=== PATIENT | female | born 1985 | race Caucasian/White ===

== ENCOUNTER 2016-09-30 15:53 | Observation (INO) | payer MEDICARE ==
[2016-09-30 15:54] LABS: A-aADO2 42; ARTERIAL BLD GAS O2 SATURATION 78.3 % (95-100); ARTERIAL BLOOD GAS BASE EXCESS 2.8 (-2.0-2.0); ARTERIAL BLOOD GAS FIO2 21 %; ARTERIAL BLOOD GAS pH 7.35 (7.35-7.45)
[2016-09-30 15:55] LABS: ALLEN TEST OK? YES; ARTERIAL BLOOD GAS PO2 40 mmHg (75-100)
[2016-09-30] MEDS ORDERED: DUONEB 0.5-3 MG/3 ml Neb IH ONE (15:56)
[2016-09-30] MEDS ORDERED: solu-MEDROL 40 MG IV ONE (16:05)
[2016-09-30] MEDS ORDERED: PHENERGAN 25 MG PO PRN (16:05)
[2016-09-30] MEDS: DUONEB 0.5-3 MG/3 ml Neb IH SCH ×3 (16:05→23:05)
--- NOTE | 2016-09-30 16:39 | XRAY ---
Indication: Short of breath. Comparison: None Portable chest demonstrates diffuse bilateral interstitial opacities favoring pneumonitis without consolidation/large effusion. Heart is not enlarged. Bony thorax intact.
[2016-09-30] MEDS: Nicoderm CQ 21 MG TOP SCH (16:40)
[2016-09-30] MEDS: Sodium Chloride 0.9% 1000 ML 1,000 ML IV SCH (16:41)
[2016-09-30] MEDS: Zithromax 500 MG/ 250 ML NaCl Premix 250 ML IV SCH (16:41)
[2016-09-30] MEDS: ROCEPHIN 1 Gm-D5w 50 ml Bag** 50 ML IV SCH (16:41)
[2016-09-30] MEDS: solu-MEDROL 40 MG IV SCH (18:16)
[2016-09-30] MEDS: TYLENOL 325 MG PO PRN (18:27)
[2016-09-30 18:42] LABS: Bacteria RARE /HPF (NEGATIVE); COMPLETE URINE MICROSCOPIC? YES; Collection Type CLEAN CATCH; Epithelial Cells FEW /HPF (FEW)
[2016-09-30] MEDS: Seroquel 100 MG PO SCH (21:19)
[2016-09-30] MEDS: Tamiflu 75MG Capsule PO SCH (21:20)
[2016-09-30] MEDS: Klor Con 10 MEQ PO SCH (21:20)
[2016-09-30] MEDS: XANAX 1 MG PO PRN (21:20)
[2016-09-30] MEDS ORDERED: Desyrel 150 MG PO SCH (22:00)
[2016-10-01] MEDS: solu-MEDROL 40 MG IV SCH ×3 (01:32→17:50)
[2016-10-01] MEDS: DUONEB 0.5-3 MG/3 ml Neb IH SCH ×5 (03:09→21:07)
[2016-10-01] MEDS: Sodium Chloride 0.9% 1000 ML 1,000 ML IV SCH ×2 (05:23→16:04)
[2016-10-01] MEDS: TYLENOL 325 MG PO PRN (05:35)
--- NOTE | 2016-10-01 07:08 | PCM.HP ---
History of Present Illness - Chief Complaint Chief Complaint: respiratory failure acute Date: 10/01/16 History of Present Illness: is a 31 year old female. presented to the office yesterday for shortness of breath fever and wheezing she was lethargic and had a pulse ox of 78% on room air. She was sent for direct admission found to have Influenza A with diffuse pneumonitis on CXR> she has refused many therapies as is consistent with her previous visits. She refused blood draws after an initial failed attempt at venous blood draws. She is improving on the oxygen and breathing better this am. - Review of Systems Constitutional: Fever, Chills, Fatigue, Lethargy Eyes: No Symptoms, Eye Redness, Itchy Ears, Nose, & Throat: Nose Congestion, Sinus Drainage, Mouth Pain, Hoarse Respiratory: Cough, Short Of Breath, Wheezing Cardiac: Edema, No Chest Pain, No Syncope Abdominal/Gastrointestinal: Nausea, No Abdominal Pain, No Vomiting, No Diarrhea Genitourinary Symptoms: No Dysuria Musculoskeletal: Back Pain, No Neck Pain Skin: No Rash Neurological: Dizziness, No Focal Weakness, No Sensory Changes Psychological: No Symptoms Endocrine: No Symptoms Hematologic/Lymphatic: No Symptoms Immunological/Allergic: No Symptoms Medications & Allergies Home Medications: Home Medication List Alprazolam 1 mg [Xanax 1 mg] 1 mg PO QID 09/30/16 [History Confirmed 09/30] Buprenorphine HCl/Naloxone HCl [Suboxone 8 mg-2 mg Sl Film] 1 film SL BID [History Confirmed 09/30/16] Desvenlafaxine Succinate [Pristiq ER] 2 tab PO DAILY 09/30/16 [History Confirmed 09/30/16] Imipramine HCl [Tofranil] 50 mg PO BID 09/30/16 [History Confirmed 09/30/16] Oxybutynin Chloride [Oxybutynin Chloride ER] 5 mg PO DAILY 09/30/16 [History Confirmed 09/30/16] Potassium Chloride 20 Meq [Klor-Con 20 MEQ] 20 meq PO BID 09/30/16 [History Confirmed 09/30/16] Quetiapine Fumarate [Seroquel] 100 mg PO QID 09/30/16 [History Confirmed ] Trazodone HCl 50 mg [Desyrel 50 mg] 50 mg PO HS 09/30/16 [History Confirmed 09/30/16] Allergies/Adverse Reactions: Allergies Allergy/AdvReac Type Severity Reaction Status Date / Time No Known Allergies Allergy Verified 09/30/16 17:55 - Past Medical History Past Medical History: Yes Neurological History: Migraines ENT History: No Pertinent History Cardiac History: No Pertinent History Respiratory History: Asthma, COPD Endocrine Medical History: No Pertinent History Musculoskelatal History: No Pertinent History GI Medical History: No Pertinent History History: No Pertinent History Pyscho-Social History: Anxiety, Depression Reproductive Disorders: No Pertinent History Comment: puchiagers" syndrome causing tumors, has healed self inflicted scars on wrists from "cutting" - Female History Hx Last Menstrual Period: 09/28/16 Are you now?: No - Past Surgical History Past Surgical History: Yes Neuro Surgical History: No Pertinent History Cardiac History: No Pertinent History Respiratory Surgery: No Pertinent History GI Surgical History: Cholecystectomy Genitourinary Surgical Hx: No Pertinent History Musculskeletal Surgical Hx: No Pertinent History Female Surgical History: No Pertinent History - Social History Smoking Status: Current every day smoker Alcohol: None Drug Use: none - Physical Exam Vital Signs: Vital Signs - 24 hr Temp Pulse Resp BP Pulse Ox 10/01/16 06:00 25 H 10/01/16 03:17 85 25 H 92 L 10/01/16 03:00 98.9 F 87 22 113/57 90 L 10/01/16 02:00 20 09/30/16 23:14 83 20 93 L 09/30/16 23:00 98.0 F 83 20 117/63 93 L 09/30/16 22:00 22 09/30/16 21:17 91 H 22 92 L 09/30/16 19:23 99.8 F 98 H 22 119/56 90 L 09/30/16 18:27 102.1 F 09/30/16 16:23 100 H 26 H 80 L 09/30/16 15:54 102.7 F 106 H 26 H 122/62 90 L Oxygen-Last 24 hours O2 Percentage 5 Liters = 40% O2 Percentage 5 Liters = 40% O2 Percentage 3 Liters = 32% General Appearance: no apparent distress, alert, obese Neurologic Exam: alert, oriented x 3, cooperative, normal mood/affect, nml cerebellar function, nml station & gait, sensation nml, No motor deficits Eye Exam: PERRL/EOMI, eyes nml inspection, other (conjunctivae injection) Ears, Nose, Throat Exam: normal ENT inspection, TMs normal, pharynx normal, moist mucous membranes Neck Exam: normal inspection, non-tender, supple, full range of motion Respiratory Exam: lungs clear, wheezing, No respiratory distress Cardiovascular Exam: regular rate/rhythm, normal heart sounds, normal peripheral pulses, No murmur Gastrointestinal/Abdomen Exam: soft, normal bowel sounds, No tenderness, No mass Back Exam: normal inspection, normal range of motion, No CVA tenderness, No vertebral tenderness Extremity Exam: normal inspection, normal range of motion, pelvis stable, pedal edema Skin Exam: normal color, warm, dry, No rash Lymphatic Exam: No adenopathy Results - Labs Lab/Micro Results: Lab Results-Last 24 Hours 09/30/16 09/30/16 09/30/16 Range/Units 15:45 16:40 18:28 Puncture Site RIGHT RADIAL pCO2 54 H (35-45) mmHg pO2 40 L* (75-100) mmHg Base Excess 2.8 H (-2.0-2.0) O2 Saturation 74.0 L (94-100) g/dF ABG pH 7.35 (7.35-7.45) ABG HCO3 29.8 H* (22-28) ABG O2 Sat (Measured) 78.3 L (95-100) % Evangelista Test YES A-a Gradient 42 a/A Ratio 0.49 Hemoglobin 15.0 Carboxyhemoglobin 4.1 (0.0-6.9) % THgb Methemoglobin 1.4 (1.4-1.5) % Potassium 3.9 (3.5-5.1) Temperature 37.0 C POC O2 Flow Rate 21 % Ur Collection Type CLEAN CATCH Urine Color ROLANDO (YELLOW) Urine Appearance CLEAR (CLEAR) Urine pH 5.0 (5-6) Ur Specific [place] 1.025 (1.005-1.025) Urine Protein 30 (Negative) Urine Glucose (UA) NEGATIVE (NEGATIVE) mg/dL Urine Ketones NEGATIVE (NEGATIVE) Urine Nitrite NEGATIVE (NEGATIVE) Urine Bilirubin NEGATIVE (NEGATIVE) Urine Urobilinogen 1 (0-1) mg/dL Urine WBC (Auto) NEGATIVE (NEGATIVE) Urine RBC (Auto) NEGATIVE (0-5) Carlos Alberto/ul Ur Epithelial Cells FEW (FEW) /HPF Urine Bacteria RARE (NEGATIVE) /HPF Urine HCG, Qual (Negative) Influenza Type A Ag POSITIVE (NEGATIVE) Influenza Type B Ag NEGATIVE (NEGATIVE) RSV (PCR) NEGATIVE (Negative) Specimen Received 09/30/16:1830 09/30/16 Range/Units 18:28 Puncture Site pCO2 (35-45) mmHg pO2 (75-100) mmHg Base Excess (-2.0-2.0) O2 Saturation (94-100) g/dF ABG pH (7.35-7.45) ABG HCO3 (22-28) ABG O2 Sat (Measured) (95-100) % Evangelista Test A-a Gradient a/A Ratio Hemoglobin Carboxyhemoglobin (0.0-6.9) % THgb Methemoglobin (1.4-1.5) % Potassium (3.5-5.1) Temperature C POC O2 Flow Rate % Ur Collection Type Urine Color (YELLOW) Urine Appearance (CLEAR) Urine pH (5-6) Ur Specific [place] (1.005-1.025) Urine Protein (Negative) Urine Glucose (UA) (NEGATIVE) mg/dL Urine Ketones (NEGATIVE) Urine Nitrite (NEGATIVE) Urine Bilirubin (NEGATIVE) Urine Urobilinogen (0-1) mg/dL Urine WBC (Auto) (NEGATIVE) Urine RBC (Auto) (0-5) Carlos Alberto/ul Ur Epithelial Cells (FEW) /HPF Urine Bacteria (NEGATIVE) /HPF Urine HCG, Qual NEGATIVE (Negative) Influenza Type A Ag (NEGATIVE) Influenza Type B Ag (NEGATIVE) RSV (PCR) (Negative) Specimen Received - Radiology Impressions Radiology Exams & Impressions: Radiology Procedures Category Date Time Status CHEST 1 VIEW (PORTABLE) Stat Exams 09/30/16 16:05 Completed - Other Procedures and Tests Respiratory Therapy 09/30/16 15:00 Respiratory Nebulizer Q4H 09/30/16 16:21 Oxygen NASAL CANNULA 5 lpm 09/30/16 21:17 BiPap/CPAP Assessment ROUTINE Assessment/Plan (1) Influenza A Current Visit: Yes Status: Acute Assessment & Plan: on tamiflu on 5 L nc o2 with her sever asthma tobacco abuse and previous dx of copd treat acute exacerbation as well with IV steroids, nebs, azithromycin, ceftriaxone wean O2 as tolerated Code(s): J10.1 - FLU DUE TO OTH IDENT INFLUENZA VIRUS W OTH RESP MANIFEST (2) Acute hypoxemic respiratory failure Current Visit: Yes Status: Acute Code(s): J96.01 - ACUTE RESPIRATORY FAILURE WITH HYPOXIA (3) COPD exacerbation Current Visit: Yes Status: Acute Code(s): J44.1 - CHRONIC OBSTRUCTIVE PULMONARY DISEASE W (ACUTE) EXACERBATION (4) Morbid obesity Current Visit: Yes Status: Acute Code(s): E66.01 - MORBID (SEVERE) OBESITY DUE TO EXCESS CALORIES (5) Asthma Current Visit: Yes Status: Acute Code(s): J45.909 - UNSPECIFIED ASTHMA, UNCOMPLICATED
[2016-10-01] MEDS ORDERED: MEDICATION INTERVENTION MC PRN (07:42)
[2016-10-01 08:42] LABS: Mean Cell Volume 93.3 fl (78-100); Mean Corpuscular Hemoglobin 29.8 pg (26-32); Mean Platelet Volume 10.3 fl (6-9.5); Platelet Count 168 K/mm3 (150-450); Red Blood Count 4.93 M/mm3 (4.1-5.4); Red Cell Distribution Width 13.6 % (11.5-14.0); White Blood Count 8.1 K/mm3 (4.0-10.5)
[2016-10-01] MEDS: Protonix 40MG Tablet PO SCH (09:18)
[2016-10-01] MEDS: Ditropan XL 5 MG PO SCH (09:18)
[2016-10-01] MEDS: Seroquel 100 MG PO SCH ×4 (09:18→22:23)
[2016-10-01] MEDS: PRISTIQ ER PO SCH (09:18)
[2016-10-01] MEDS: ENOXAPARIN SODIUM SQ SCH (09:19)
[2016-10-01] MEDS: Klor Con 10 MEQ PO SCH ×2 (09:19→22:23)
[2016-10-01] MEDS: Tamiflu 75MG Capsule PO SCH ×2 (09:19→22:23)
[2016-10-01 09:28] LABS: BAND 1 % (0.0-2.0); Platelet Estimate NORMAL (NORMAL); Total Cells Counted 100
[2016-10-01] MEDS ORDERED: IMIPRAMINE HCL 50 MG PO SCH (10:00)
[2016-10-01] MEDS ORDERED: NALOXONE HCL SL SCH (10:00)
[2016-10-01] MEDS ORDERED: BUPRENORPHINE HCL SL SCH (10:00)
[2016-10-01] MEDS: XANAX 1 MG PO PRN ×3 (10:15→22:28)
[2016-10-01 11:30] LABS: ALBUMIN 3.2 g/dL (3.4-5.0); ALKALINE PHOSPHATASE 51 U/L (46-116); ANION GAP 14.6 MEQ/L (5-15); BILIRUBIN,TOTAL 0.2 mg/dL (0.2-1.0); BLOOD UREA NITROGEN 8 mg/dL (9-20); CHLORIDE 102 mEq/L (98-107); Carbon Dioxide 24.7 mEq/L (21-32); Glucose 173 MG/DL (70-110); Potassium 4.2 mEq/L (3.5-5.1); SGOT/AST 26 U/L (15-37); SGPT/ALT 21 U/L (12-78); SODIUM 137 mEq/L (136-145); Total Protein 7.3 gm/dL (6.4-8.2)
[2016-10-01] MEDS: ROCEPHIN 1 Gm-D5w 50 ml Bag** 50 ML IV SCH (15:03)
[2016-10-01] MEDS: Nicoderm CQ 21 MG TOP SCH (15:04)
[2016-10-01] MEDS: Zithromax 500 MG/ 250 ML NaCl Premix 250 ML IV SCH (17:50)
[2016-10-01] MEDS ORDERED: DESYREL 50 MG PO SCH (22:00)
[2016-10-02] MEDS: DUONEB 0.5-3 MG/3 ml Neb IH SCH ×4 (00:23→10:33)
[2016-10-02] MEDS: solu-MEDROL 40 MG IV SCH ×2 (00:59→09:11)
--- NOTE | 2016-10-02 07:43 | PCM.DCORD ---
- Discharge Discharge Date: 10/02/16 Disposition: Home, Self-Care Condition: Stable Prescriptions: New Prednisone 20 mg [Deltasone 20 mg] 40 mg PO DAILY #10 tablet Oseltamivir 75 mg [Tamiflu 75MG Capsule] 75 mg PO BID #8 cap Azithromycin 250 mg [Zithromax 250 MG TABLET] 250 mg PO DAILY #4 tablet Continue Quetiapine Fumarate [Seroquel] 100 mg PO QID Desvenlafaxine Succinate [Pristiq ER] 2 tab PO DAILY Buprenorphine HCl/Naloxone HCl [Suboxone 8 mg-2 mg Sl Film] 1 film SL BID Potassium Chloride 20 Meq [Klor-Con 20 MEQ] 20 meq PO BID Alprazolam 1 mg [Xanax 1 mg] 1 mg PO QID Oxybutynin Chloride [Oxybutynin Chloride ER] 5 mg PO DAILY Imipramine HCl [Tofranil] 50 mg PO BID Trazodone HCl 50 mg [Desyrel 50 mg] 50 mg PO HS Follow up with: SHEREEN JACOBO [Primary Care Provider] - 1 Week
[2016-10-02 08:03] VITALS: BP 99/54
[2016-10-02] MEDS: ENOXAPARIN SODIUM SQ SCH (09:11)
[2016-10-02] MEDS: Klor Con 10 MEQ PO SCH (09:12)
[2016-10-02] MEDS: Ditropan XL 5 MG PO SCH (09:12)
[2016-10-02] MEDS: PRISTIQ ER PO SCH (09:12)
[2016-10-02] MEDS: Tamiflu 75MG Capsule PO SCH (09:13)
[2016-10-02] MEDS: Seroquel 100 MG PO SCH (09:13)
[2016-10-02] MEDS: Protonix 40MG Tablet PO SCH (09:13)
[2016-10-02 10:39] VITALS: PULSE 70; O2SAT 93
--- NOTE | 2016-10-02 18:12 | PCM.DS ---
Discharge Summary Date of Admission: 09/30/16 15:53 Date of Discharge: 10/02/16 Admitting Physician: SHEREEN JACOBO Primary Care Provider: SHEREEN JACOBO Allergies Allergies No Known Allergies Allergy (Verified 09/30/16 17:55) Hospital Summary - Hospital Course Hospital Course: Rita has asthma and has developed asthma with chronic bronchitis at a young age due to her noncompliance with treatment and her smoking that ranges from 1 to 3 packs per day. She developed fever chills and dyspnea on Friday with lethargy and shortness of breath but waited until Friday because she did not want to go to the hospital. She presented to the clinic and was very lethargic, she walked in but looked like she was going to fall over and she was checked and found to have pulse ox of 78% and a fever. She was given a neb and oxygen that improved her some to 90% she refused ambulance transfer to hospital and had her boyfriend take her for direct admission after much arguing about her need for hospitalization. She was found to be influenza A positive and started on tamiflu and had diffuse pneumonitis with her COPD she was started on solumedrol iv and azithromycin she improved and her fever did break and her oxygen was weaned from 5L down to room air. She was very anxious to be discharged. She was counseled on the harms of smoking with her asthma but has no intentions to quit smoking. - Vitals & Intake/Output Vital Signs: Vital Signs Temperature 97.2 F 10/02/16 11:00 Pulse Rate 70 10/02/16 11:00 Respiratory Rate 18 10/02/16 11:00 Blood Pressure 99/54 10/02/16 11:00 O2 Sat by Pulse Oximetry 93 L 10/02/16 11:00 Oxygen-Last Documented O2 Percentage 2 Liters = 28% Intake & Output: Intake & Output 09/30/16 10/01/16 10/02/16 10/03/16 11:59 11:59 11:59 11:59 Intake Total 2405 1440 Output Total 500 2500 Balance 1905 -1060 Weight 175.143 kg - Lab Result Diagrams: 10/01/16 08:05 10/01/16 08:05 Micro Results-Entire Visit: Microbiology 10/01/16 08:10 Blood Culture - Preliminary Blood NO GROWTH TO DATE - Procedures and Test Procedures and Tests throughout Hospitalization: Therapy Orders & Screens 09/30/16 15:00 Respiratory Nebulizer Q4H Comment: DUONEB Q4 Diagnosis: respiratory failure acute 09/30/16 16:05 EKG STAT Comment: Respiratory Therapy Consult ROUTINE Comment: Reason For Exam: 09/30/16 16:21 Oxygen NASAL CANNULA 5 lpm Comment: Diagnosis: respiratory failure acute 09/30/16 16:45 RT Screen per Nursing Assess ONCE Comment: Protocol Order Physician Instructions: Greater than 3 points order RT Admission Screen Reason For Exam: Triggered on Admission Diagnosis: respiratory failure acute Diagnosis: respiratory failure acute Pneumonia: Yes Home O2: No Asthma: Yes CHF: No Home CPAP/BIPAP: No Home Nebs/MDI: Yes Total Points: 12 Smoking Cessation Education ONCE Comment: Diagnosis: respiratory failure acute Smoking Status: Current every day smoker Have you smoked in the past 12 months: Yes Approximately how many cigarettes per day: 2ppd 09/30/16 21:17 BiPap/CPAP Assessment ROUTINE Comment: Diagnosis: respiratory failure acute Discharge Exam General Appearance: obese Neurologic Exam: alert, oriented x 3, cooperative Skin Exam: warm, dry Eye Exam: No PERRL, No scleral icterus Ears, Nose, Throat Exam: moist mucous membranes Neck Exam: non-tender, supple Respiratory Exam: normal breath sounds, No respiratory distress Cardiovascular Exam: regular rate/rhythm, normal heart sounds Gastrointestinal/Abdomen Exam: soft, normal bowel sounds Extremity Exam: normal inspection, No calf tenderness, No pedal edema (edema has resolved with her laying in bed for the 2 days now) Final Diagnosis/Problem List - Final Discharge Diagnosis/Problem (1) Influenza A Status: Acute (2) Acute hypoxemic respiratory failure Status: Acute (3) COPD exacerbation Status: Acute (4) Morbid obesity Status: Acute (5) Asthma Status: Acute - Discharge Discharge Date: 10/02/16 Disposition: Home, Self-Care Condition: Stable Prescriptions: New Prednisone 20 mg [Deltasone 20 mg] 40 mg PO DAILY #10 tablet Oseltamivir 75 mg [Tamiflu 75MG Capsule] 75 mg PO BID #8 cap Azithromycin 250 mg [Zithromax 250 MG TABLET] 250 mg PO DAILY #4 tablet Continue Quetiapine Fumarate [Seroquel] 100 mg PO QID Desvenlafaxine Succinate [Pristiq ER] 2 tab PO DAILY Buprenorphine HCl/Naloxone HCl [Suboxone 8 mg-2 mg Sl Film] 1 film SL BID Potassium Chloride 20 Meq [Klor-Con 20 MEQ] 20 meq PO BID Alprazolam 1 mg [Xanax 1 mg] 1 mg PO QID Oxybutynin Chloride [Oxybutynin Chloride ER] 5 mg PO DAILY Imipramine HCl [Tofranil] 50 mg PO BID Trazodone HCl 50 mg [Desyrel 50 mg] 50 mg PO HS Instructions: Chronic Obstructive Pulmonary Disease, Obesity -- Adult, Influenza -- Adult Follow up with: SHEREEN JACOBO [Primary Care Provider] - 10/09/16 11:00 am
== END 2016-10-02 11:00 | disposition home or self-care (01) ==
LOC: MED SURG 15:53 → EDBD 15:53
PROVIDERS: ADMIT Family Medicine; ATTEND Family Medicine
DX: J10.1 Influenza due to other identified influenza virus with other respiratory manifestations (principal); J96.01 Acute respiratory failure with hypoxia; J44.1 Chronic obstructive pulmonary disease with (acute) exacerbation; E66.01 Morbid (severe) obesity due to excess calories; J45.909 Unspecified asthma, uncomplicated; F41.8 Other specified anxiety disorders
CPT/HCPCS: 84703; 87040; 81000; 36415; 83880; 85025; 80053; 87631; 71010; 94002; 94003; 82803; 82375; 36600; 94640 ×4; 94760; 94761; 93005; A9270 ×24; G0378; J0456; J0696; J1650; J2920